=== PATIENT | female | born 1980 | race Caucasian/White ===

== ENCOUNTER 2023-11-26 07:22 | Emergency (ER) | payer BC, OTHER ==
[~2023-11-26] VITALS: Ht 160 cm; Wt 54.4 kg
[2023-11-26 07:38] VITALS: BP_SYST 106; PULSE 88; RESP 18; TEMP 97.5; O2SAT 97
[2023-11-26 08:13] LABS: BILIRUBIN,URINE NEGATIVE (NEGATIVE); BLOOD, URINE NEGATIVE (NEGATIVE); CLARITY/URINE CLEAR (CLEAR); COLOR,URINE YELLOW (YELLOW); GLUCOSE,URINE NEGATIVE (NEGATIVE); KETONES,URINE NEGATIVE (NEGATIVE); LEUKOCYTE ESTERASE ,URINE NEGATIVE (NEGATIVE); NITRITE, URINE NEGATIVE (NEGATIVE); PROTEIN URINE NEGATIVE (NEGATIVE); UROBILINOGEN,URINE 0.2 (0.2-1.0)
[2023-11-26 08:15] LABS: BASOPHILS % (AUTO) 0.4 % (0.0-2.0); EOSINOPHILS % (AUTO) 0.4 % (0.0-4.0); HEMATOCRIT 41.8 % (36-48); LYMPHOCYTES # (AUTO) 1.7 K/uL (1.0-5.5); LYMPHOCYTES % (AUTO) 15.7 % (20.5-51.5); MEAN CORPUSCULAR HEMOGLOBIN 31 pg (27-31); MEAN CORPUSCULAR HGB CONC 33 % (32-36); MEAN CORPUSCULAR VOLUME 93 fL (79.0-98.0); MONOCYTES # (AUTO) 0.6 K/uL (0.0-1.0); MONOCYTES % (AUTO) 5.5 % (1.7-9.3); NEUTROPHILS # (AUTO) 8.5 K/uL (1.8-7.7); PLATELET COUNT (AUTO) 341 K/uL (130-430); RED BLOOD CELL COUNT(AUTO) 4.52 MIL/uL (4.2-6.2); RED CELL DISTRIBUTION WIDTH 13.4 % (9.0-15.0); WHITE BLOOD COUNT (AUTO) 10.9 K/uL (4.8-10.8)
[2023-11-26 08:43] LABS: BARBITURATE, URINE NEGATIVE (NEG <=200); BENZODIAZEPINE, URINE NEGATIVE (NEG <=150); CANNABINOID, URINE NEGATIVE (NEG <=50); COCAINE, URINE NEGATIVE (NEG <=150); METHAMPHETAMINES SCREEN,URINE NEGATIVE (NEG <=500); OPIATE, URINE NEGATIVE (NEG <=100); PHENCYCLIDINE SCREEN,URINE NEGATIVE (NEG <=25); UR TRICYCLIC ANTIDEPRESSANTS NEGATIVE (NEG <=300); URINE AMPHETAMINE NEGATIVE (NEG <=500); URINE METHADONE NEGATIVE (NEG <=200); URINE OXYCODONE SCREEN NEGATIVE (NEG <=100)
[2023-11-26 08:53] LABS: ACETAMINOPHEN < 1 ug/mL (1-30); ANION GAP 7 (5-15); CARBON DIOXIDE 28 mmol/L (23-29); CHLORIDE 106 mmol/L (98-107); CREATININE 0.78 mg/dL (0.55-1.30); GFR AFRICAN AMERICAN 105 mL/min (>90); GFR NON AFRICAN-AMERICAN 87 mL/min (>90); GLUCOSE 105 mg/dL (74-106); SALICYLATE < 1 mg/dL (3-30); SODIUM SERUM 141 mmol/L (136-145); UREA NITROGEN, BLOOD 8 mg/dL (8-21)
[2023-11-26 08:54] LABS: ALCOHOL, BLOOD < 3 mg/dL (<10)
[2023-11-26 12:05] VITALS: BP_SYST 106; PULSE 88; RESP 18; TEMP 97.5; O2SAT 97
== END 2023-11-26 12:06 | disposition home or self-care (01) ==
LOC: SED 07:22
DX: F32.A Depression, unspecified (principal); Z20.822 Contact with and (suspected) exposure to COVID-19; Z98.890 Other specified postprocedural states
CPT/HCPCS: 99283; 87426; 80307; 80048; 81001; 85025; 36415; 81025; G0482; G0480; G0481; 81003